=== PATIENT | male | born 1985 | race Caucasian/White ===

== ENCOUNTER 2023-09-26 12:01 | Emergency (ER) | payer OTHER | END 2023-09-26 12:40 | disposition home or self-care (01) | LOC: MADERS 12:01 | DX: J45.901 Unspecified asthma with (acute) exacerbation (principal); R03.0 Elevated blood-pressure reading, without diagnosis of hypertension | CPT/HCPCS: 99284 ==

== ENCOUNTER 2025-01-25 09:14 | Emergency (ER) | payer OTHER | END 2025-01-25 09:42 | disposition home or self-care (01) | LOC: MADERS 09:14 | DX: H72.91 Unspecified perforation of tympanic membrane, right ear (principal) | CPT/HCPCS: 99282 ==